=== PATIENT | female | born 1965 | race Caucasian/White ===

== ENCOUNTER 2020-06-26 11:18 | Outpatient (CLI) | payer BC, SELFPAY ==
--- NOTE | ~2020-06-26 | CT_ITS ---
EXAMINATION:CT lung screening DATE: 06/26/2020 11:47 INDICATION: Personal history of tobacco dependence. Current smoker with 30 pack year history. TECHNIQUE: Computed tomography (CT) of the chest was performed without intravenous contrast. Automate d exposure control and iterative reconstruction technique were employed. The dose-length product (DLP ) was 111.49 mGy-cm. COMPARISON: None. FINDINGS: There is mild emphysema. There is widespread peripheral intralobular and interlobular septa l thickening. No bronchiectasis or honeycombing. A calcified right lung nodule and calcified right hi lar and mediastinal lymph nodes are consistent with old granulomatous disease. No pleural effusion. T he heart size is normal. There are coronary artery calcifications. No pericardial effusion. A calcifi cation in the liver is consistent with old granulomatous disease. There is mild thoracic spondylosis. IMPRESSION: 1. Lung-RADS category 2: Benign appearance or behavior. Continue annual screening with noncontrast lo w-dose chest CT in 12 months. Reviewed, dictated and finalized at location A. IMPRESSION: 1. Lung-RADS category 2: Benign appearance or behavior. Continue annual screeni ng with noncontrast low-dose chest CT in 12 months.
== END 2020-06-26 11:19 | disposition home or self-care (01) ==
LOC: ANHIMG 11:30
PROVIDERS: PCP Emergency Medicine; Visit Provider Emergency Medicine
DX: F17.210 Nicotine dependence, cigarettes, uncomplicated (principal)
CPT/HCPCS: G0297

== ENCOUNTER 2020-07-03 15:04 | Outpatient (CLI) | payer BC, SELFPAY ==
--- NOTE | 2020-07-03 16:12 | ECG_ITS ---
Measurements Intervals [place] Rate: 48 P: 62 IN: 170 QRS: 33 QRSD: 105 T: 47 QT: 469 QTc: 421 Interpretive Statements SINUS BRADYCARDIA INCOMPLETE RIGHT BUNDLE BRANCH BLOCK ABNORMAL ECG Electronically Signed On 07-03-2020 16:51:04 CARD ASSEMBLER by Estuardo Esparza D.O.
[2020-07-03 16:26] LABS: Add Urine Microscopic? YES; Appearance Urine Clear (Clear); Bilirubin Urine Negative (Negative); Blood Urine Negative (Negative); Color Urine Yellow (Yellow); Glucose Urine UA Negative (Negative); Ketones Urine Trace mg/dL (Negative); Leukocyte Esterase Ur Negative LEU/UL (Negative); Mucus Urine Rare /lpf; Nitrate Urine Negative (Negative); Protein Urine Negative (Negative); RBC Urine 0-2 /hpf (0-2); Specific Grav Ur 1.023 (1.001-1.035); Squamous Epithelial Cell Urine Moderate /hpf (Few); Urobilinogen Urine Negative mg/dL (<2.0); WBC Urine 0-3 /hpf
[2020-07-03 16:28] LABS: Hematocrit 41.6 % (37.0-47.0); Hemoglobin 13.8 g/dL (12.0-15.0); Mean Corpuscular HGB Conc 33.2 g/dl (32-36); Mean Corpuscular Hemoglobin 31.4 pg (26-34); Mean Corpuscular Volume 94.8 fl (80-100); Mean Platelet Volume 8.1 fl (7.4-10.4); Platelet Count Result 307 k/mm3 (150-375); Red Blood Count 4.39 M/mm3 (4.2-5.4); Red Cell Distribution Width 12.6 % (11.5-14.5); White Blood Count 7.4 K/mm3 (4.5-10.0)
== END 2020-07-03 15:05 | disposition home or self-care (01) ==
LOC: ANHLAB 15:06
PROVIDERS: PCP Emergency Medicine; Visit Provider Surgery
DX: R19.03 Right lower quadrant abdominal swelling, mass and lump (principal); Z12.11 Encounter for screening for malignant neoplasm of colon; Z72.0 Tobacco use; Z01.818 Encounter for other preprocedural examination; I45.10 Unspecified right bundle-branch block
CPT/HCPCS: 36415; 81001; 85027; 93005

== ENCOUNTER 2020-07-04 01:26 | Outpatient (CLI) | payer BC, SELFPAY ==
[2020-07-04 20:51] LABS: SARS-CoV-2 RNA PCR Negative
== END 2020-07-04 01:27 | disposition home or self-care (01) ==
LOC: ANHCOVIDDT 01:26
PROVIDERS: PCP Emergency Medicine; Visit Provider Surgery
DX: Z01.812 Encounter for preprocedural laboratory examination (principal); Z20.828 Contact with and (suspected) exposure to other viral communicable diseases
CPT/HCPCS: 87635; C9803; U0003

== ENCOUNTER 2020-07-06 00:57 | Day surgery (SDC) | payer BC, SELFPAY ==
[2020-07-03 09:24] VITALS: BMI 36.6
--- NOTE | 2020-07-06 09:20 | WPDANESEPPF ---
Anes - Initial Pre Proc Eval Procedure: Operation Date: 07/06/20 11:15 Proposed Procedures p Screening Colonoscopy - Aldair Mojica MD Date/Time: 07/06/20 09:20 Surgeon: Aldair Mojica MD Pre Op Diagnosis: neoplasm screening Patient Data Age: 54 Gender: F Height: 1.6 m Weight: 93.89 kg Allergies Allergy/AdvReac Type Severity Reaction Status Date / Time No Known Allergies Allergy Mild Verified 07/06/20 09:49 Home Medications Medication Instructions Recorded Confirmed Type Valtrex 1 tablet PO TID 07/03/20 07/06/20 History calcium-vitamin D3-vitamin K 1 tablet PO DAILY 07/03/20 07/06/20 History diphenhydramine HCl [Benadryl] 25 mg PO HS 07/03/20 07/06/20 History magnesium 1 tablet PO DAILY 07/03/20 07/06/20 History multivitamin 1 tablet PO DAILY 07/03/20 07/06/20 History omega-3 fatty acids [Stuart 3] 1,000 mg PO DAILY 07/03/20 07/06/20 History valacyclovir 100 mg PO TID 07/06/20 07/06/20 History Patient hx anesthesia problems: none Family hx anesthesia problems: none PMFSH Past Medical History Medical History (Updated 07/06/20 @ 09:20 by Ge Tam MD) BMI 38.0-38.9,adult Tobacco abuse Surgical History Surgical History History of x3 History of eye surgery Family History Family History Father Liver cirrhosis Mother Renal failure Diabetes mellitus Hypertension Other Diabetes mellitus Hypertension Kidney disease Social History Social History Smoking packs per day: 1 Smoking cigarettes per day: 20.0 Years smoked: 40 Smoking pack-years: 40.00 Smoking status: Current every day smoker Tobacco type: cigarettes Alcohol intake: never Substance use: unknown Living arrangements: with family 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 Questions were solicited and answers provided to the satisfaction of the patient/family/POA.
[2020-07-06 09:51] VITALS: BP 106/64; PULSE 62; RESP 17; TEMP 36.4; O2SAT 97; BMI 36.1
[2020-07-06] MEDS: LACTATED RINGERS 1,000 ML 150 ML IV CONT ×2 (10:08→13:16)
--- NOTE | 2020-07-06 11:40 | WPDHPUPDATE1 ---
History and Physical Update Update Date/Time: 07/06/20 11:40 History and Physical has been reviewed, including an updated exam of the patient. There are NO changes in the patient's condition. Risks, benefits, and alternatives have been discussed and questions answered. Patient agrees to proceed with procedure.
[2020-07-06 13:20] VITALS: BP 103/66; PULSE 70; RESP 20; O2SAT 100
[2020-07-06 13:30] VITALS: BP 100/56; PULSE 63; RESP 15; O2SAT 100
[2020-07-06 13:40] VITALS: BP 124/72; PULSE 59; RESP 16; O2SAT 100
== END 2020-07-06 14:02 | disposition home or self-care (01) ==
PROVIDERS: PCP Emergency Medicine; Visit Provider Surgery
PROC: 0DJD8ZZ Inspection of Lower Intestinal Tract, Via Natural or Artificial Opening Endoscopic (ICD-10-PCS; CPT 45378; principal; 2020-07-06 11:15)
DX: Z12.11 Encounter for screening for malignant neoplasm of colon (principal); K63.5 Polyp of colon; K62.1 Rectal polyp; K57.30 Diverticulosis of large intestine without perforation or abscess without bleeding; F17.210 Nicotine dependence, cigarettes, uncomplicated; E66.9 Obesity, unspecified; Z68.36 Body mass index [BMI] 36.0-36.9, adult
CPT/HCPCS: 45380; 88305; J2704; J7120

== ENCOUNTER 2020-07-07 01:38 | Day surgery (SDC) | payer BC, SELFPAY ==
[2020-07-03 09:13] VITALS: BMI 36.6
[2020-07-07] VITALS (8 sets, daily range): BP systolic 89–124; BP diastolic 54–71; PULSE 48–81; RESP 10–20; TEMP 35.8–36.4; O2SAT 92–100
[2020-07-07] MEDS: LACTATED RINGERS 1,000 ML 30 ML IV CONT ×2 (12:25→15:21)
--- NOTE | 2020-07-07 13:31 | WPDHPUPDATE1 ---
History and Physical Update Update Date/Time: 07/07/20 13:31 History and Physical has been reviewed, including an updated exam of the patient. There are NO changes in the patient's condition. Risks, benefits, and alternatives have been discussed and questions answered. Patient agrees to proceed with procedure.
--- NOTE | 2020-07-07 13:41 | P.PNAN_ITS ---
Anes - Initial Pre Proc Eval Procedure: Operation Date: 07/07/20 14:00 Proposed Procedures p Excision Large Lipoma Right Lower Abdominal Wall - Aldair Mojica MD Date/Time: 07/07/20 13:41 Surgeon: Aldair Mojica MD Pre Op Diagnosis: large 10x 5 cm RLQ abd subq mass Patient Data Age: 54 Gender: F Height: 5 ft 3 in Weight: 93.45 kg Last Vital Signs Temp 35.8 C L 07/07/20 12:10 Pulse 78 07/07/20 12:10 Resp 20 07/07/20 12:10 BP 97/71 L 07/07/20 12:10 Pulse Ox 97 07/07/20 12:10 Allergies Allergy/AdvReac Type Severity Reaction Status Date / Time No Known Allergies Allergy Mild Verified 07/07/20 12:36 Home Medications Medication Instructions Recorded Confirmed Type Valtrex 1 tablet PO TID 07/03/20 07/07/20 History calcium-vitamin D3-vitamin K 1 tablet PO DAILY 07/03/20 07/07/20 History diphenhydramine HCl [Benadryl] 25 mg PO HS 07/03/20 07/07/20 History magnesium 1 tablet PO DAILY 07/03/20 07/07/20 History multivitamin 1 tablet PO DAILY 07/03/20 07/07/20 History omega-3 fatty acids [Alder 3] 1,000 mg PO DAILY 07/03/20 07/07/20 History valacyclovir 100 mg PO TID 07/06/20 07/06/20 History Patient hx anesthesia problems: none Family hx anesthesia problems: none PMFSH Past Medical History Medical History BMI 38.0-38.9,adult Tobacco abuse Surgical History Surgical History History of x3 History of eye surgery Family History Family History Father Liver cirrhosis Mother Renal failure Diabetes mellitus Hypertension Other Diabetes mellitus Hypertension Kidney disease Social History Social History Smoking packs per day: 1 Smoking cigarettes per day: 20.0 Years smoked: 40 Smoking pack-years: 40.00 Smoking status: Current every day smoker Tobacco type: cigarettes Alcohol intake: never Substance use: unknown 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, 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 Questions were solicited and answers provided to the satisfaction of the patient/family/POA.
[2020-07-07] MEDS: ceFAZolin 2 GM/D5W 50 ML 2 GM/50 ML BAG IVPB (14:03)
--- NOTE | 2020-07-07 15:19 | P.OP_ITS ---
Procedure Note - Detailed Date of procedure: 07/07/20 Pre-op diagnosis: large 10x 5 cm RLQ abd subq mass Post-op diagnosis: same Procedure performed: Excision of skin lesion Description of procedure: The patient was placed in the supineposition for induction of G IV S anesthesia. Then she was rolled slightly to the left and a Gelfoam bump placed underneath her right hip and back to rotator senior living toward the left side. This nicely exposed the palpable deep lipoma in the lower lateral right abdomen. After a surgical time out confirming patient and procedure the patient was prepped and draped in the usual sterile fashion. We draped the right lower abdomen and flank widely. A 9 cm incision was outlined across the lateral lower right abdomen directly over the palpable mass. Local anesthetic was administered just under the skin and subcutaneously. A direct incision was made over the palpable lesion. I dissected down to the deep subcutaneous tissues, and we in size but appeared to be Vijay's fascia and found more fat. Then we could feel the underlying rounded oblong mass. Following this with palpation it appeared that the mass was underneath the external oblique aponeurosis and muscle in this area. Using a transverse i ncision that was muscle-splitting along the lines of the fibers of the external oblique we split the external oblique and then some yellowish fat seen a bubble up which was consistent with a submuscular lipoma sitting between the external oblique and the underlying internal oblique and transversalis fascia. This was drained circumferentially dissected with Bovie cautery pushing the muscle away from it there were couple sites were there appeared to be blood supply coming into them and these were hemostatic divided and tied with suture ligatures of 3 0 Vicryl. I then completely excised the mass. Bleeding was controlled with electrocautery and the suture ligation mentioned above. The wound was closed in layers. First an interrupted [id number] 0 Vicryl was used on the area of disruption of the lateral internal oblique and transversalis fascia at the depth of the mass. Following this an 0 Vicryl suture was used to run the external oblique aponeurosis and muscle closed starting medially running laterally until we came to the end of the incision into that muscular structure. I then used a 0 Vicryl to run the Vijay's fascia closed. Several un-dyed 3-0 & 0 vicryl deep dermal sutures were placed to approximate the subcutaneous tissues and then a 4-0 undyed Monocryl running subcuticular closure was completed. Surgical glue applied as dressing. Patient tolerated this well. Anesthesia: GLMA and local Surgeon: Aldair Mojica MD Strategic Partner Development Manager: SUKUMAR Velasco, OR 1st assist Estimated blood loss (mL): 10 Drains: No Packing: No Pathology: yes (A 9 x 6 x 4 cm submuscular mass consistent with possible lipoma) Complications: No immediate complications Condition: stable Findings: The palpable mass that the patient and I were feeling was actually deep to the external oblique and situated densely adhered to the underlying internal oblique and laterally little bit of the transversalis muscle. To me this felt grossly like a lipoma.
[2020-07-07] MEDS: fentaNYL CITRATE INJ (*CRX) 100 MCG/2 ML VIAL 25 MCG IV PUSH (15:48)
[2020-07-07] MEDS: oxyCODONE HCL (*CRX) 5 MG TAB IR PO (16:36)
--- NOTE | 2020-07-07 16:53 | SUR.PHASEII ---
1640- pt with c/o pain. medicated for pain. tolerating po fluids well.
== END 2020-07-07 17:30 | disposition home or self-care (01) ==
PROVIDERS: PCP Emergency Medicine; Visit Provider Surgery
PROC: (CPT 22901; principal; 2020-07-07 14:00)
DX: D17.1 Benign lipomatous neoplasm of skin and subcutaneous tissue of trunk (principal); F17.210 Nicotine dependence, cigarettes, uncomplicated; E66.9 Obesity, unspecified; Z68.36 Body mass index [BMI] 36.0-36.9, adult
CPT/HCPCS: 22901; 88304; A9270; J0690; J1100; J2250; J2405; J2704; J3010; J7120

== ENCOUNTER 2020-10-11 10:54 | Outpatient (CLI) | payer BC, SELFPAY ==
--- NOTE | ~2020-10-11 | US_ITS ---
EXAMINATION: US soft tissue abdomen DATE: 10/11/2020 11:52 INDICATION: Right lower quadrant mass. TECHNIQUE: Multiple grayscale and Doppler ultrasound images of the abdomen were obtained. COMPARISON: None FINDINGS: There is a 5.1 x 5.1 x 5.1 cm mixed cystic and solid, hypoechoic, subcutaneous mass deep to the right lower quadrant incision. No erythema on physical exam. IMPRESSION: 1. 5.1 cm subcutaneous mass deep to the right lower quadrant incision. The patient reports a lipoma r esection in July. This finding is consistent with a hematoma. Reviewed, dictated and finalized at location A. ANT PUFF MAKER IMPRESSION: 1. 5.1 cm subcutaneous mass deep to the right lower quadrant incision. The umang ent reports a lipoma resection in July. This finding is consistent with a h ematoma.
--- NOTE | ~2020-10-11 | US_ITS ---
US renal BI 10/11/2020 11:52 Procedure: Realtime transabdominal ultrasound of the kidneys and bladder. Indication: Right lower quadrant pain Comparison: 10/11/2020 Findings: Renal echotexture is normal bilaterally without hydronephrosis, contour deforming mass or r enal calculus. The right kidney measures 10.7 cm and left kidney measures 12.1 cm. Bladder within no rmal limits. Impression: 1: Unremarkable renal ultrasound. No stones, masses or hydronephrosis. Reviewed, dictated and finalized at location B. EU THERAPIST Impression: 1: Unremarkable renal ultrasound. No stones, masses or hydronephrosis.
== END 2020-10-11 10:55 | disposition home or self-care (01) ==
PROVIDERS: PCP Emergency Medicine; Referring Provider Surgery; Visit Provider Emergency Medicine
DX: R10.31 Right lower quadrant pain (principal)
CPT/HCPCS: 76705; 76775

== ENCOUNTER 2020-12-25 14:58 | Outpatient (CLI) | payer BC, SELFPAY ==
--- NOTE | ~2020-12-25 | MM_ITS ---
EXAMINATION: MM screening tato BI w carlos HISTORY: Screening mammogram TECHNIQUE: Craniocaudal and mediolateral oblique 3-D tomosynthesis images were obtained and synthetic 2-D images were generated. CAD analysis was submitted and interpreted. COMPARISON: 06/25/2018 bilateral digital screening mammogram examinations BREAST PARENCHYMAL COMPOSITION: There are scattered areas of fibroglandular density. FINDINGS: There is no evidence of suspicious mass, calcification, or architectural distortion to sugg est malignancy in either breast. There has been no suspicious interval change. IMPRESSION: 1. No mammographic evidence of malignancy. 2. Recommend routine screening mammography in one year. BI-RADS Category 1: Negative Reviewed, dictated and finalized at location A.
== END 2020-12-25 14:59 | disposition home or self-care (01) ==
LOC: ANHIMG 15:01
PROVIDERS: PCP Emergency Medicine; Visit Provider Emergency Medicine
DX: Z12.31 Encounter for screening mammogram for malignant neoplasm of breast (principal)
CPT/HCPCS: 77063; 77067

== ENCOUNTER 2021-11-15 15:43 | Emergency (ER) | payer SELFPAY ==
--- NOTE | ~2021-11-15 | XR_ITS ---
EXAMINATION: XR hand RT min 3V DATE: 11/15/2021 16:15 INDICATION: Right hand injury. TECHNIQUE: 3 views of right hand were obtained. COMPARISON: Right hand radiographs 02/10/2009 FINDINGS: There is an old healed fracture of head and neck of fifth middle phalanx with malunion resu lting in clinodactyly. There is mild posttraumatic osteoarthritis of fifth distal interphalangeal taylor nt. There is mild osteoarthritis of first carpometacarpal joint, first and second metacarpophalangeal joints, and second and third distal interphalangeal joints. IMPRESSION: 1. Mild polyarticular osteoarthritis. Reviewed, dictated and finalized at location A.
[2021-11-15 15:50] VITALS: BP 120/70; PULSE 62; RESP 16; TEMP 36.3; O2SAT 97
--- NOTE | 2021-11-15 16:23 | ED.GENADULT ---
HPI - General Adult General Chief complaint: Extremity Injury, Upper Stated complaint: Fall, R hand pain Time Seen by Provider: 11/15/21 15:56 Source: RN notes reviewed History of Present Illness HPI narrative: Patient presents emergency room from home for right hand pain. Patient states she was walking yesterday when she tripped over a down to sign. States she fell catching her self with a right outstretched hand states that she noted pain and bruising of her right palmar hand that did not extend to her dorsal hand she denies any wrist or elbow pain she states she did bump her left chin but denies any swelling or pain in her face she denies any other injuries from the fall states she has not taken any medications today Related Data Home Medications Medication Instructions Recorded Confirmed Valtrex 1 tablet PO TID 07/03/20 10/11/20 calcium-vitamin D3-vitamin K 1 tablet PO DAILY 07/03/20 10/11/20 diphenhydramine HCl [Benadryl] 25 mg PO HS 07/03/20 08/22/20 magnesium 1 tablet PO DAILY 07/03/20 10/11/20 multivitamin 1 tablet PO DAILY 07/03/20 10/11/20 omega-3 fatty acids 1,000 mg PO DAILY 07/03/20 10/11/20 valacyclovir 100 mg PO TID 07/06/20 10/11/20 Allergies Allergy/AdvReac Type Severity Reaction Status Date / Time No Known Allergies Allergy Mild Verified 10/11/20 09:18 Review of Systems Review of Systems: Gen.: Denies fevers or chills HEENT: Reports bumping chin denies pain Musculoskeletal: See HPI Neuro: Denies numbness, tingling, weakness Skin: Denies rash Endo: Denies DM [facility] Past Medical History Medical History BMI 38.0-38.9,adult Tobacco abuse Surgical History Surgical History History of x3 History of colonoscopy History of eye surgery S/P excision of lipoma Family History Family History Father Liver cirrhosis Mother Renal failure Diabetes mellitus Hypertension Other Diabetes mellitus Hypertension Kidney disease Social History Social History Smoking packs per day: 1 Smoking cigarettes per day: 20.0 Years smoked: 40 Smoking pack-years: 40.00 Smoking status: Current every day smoker Tobacco type: cigarettes Alcohol intake: never Substance use: unknown 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, 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 Gender identity (if verbalized by the patient): Female Spiritual care concerns: No Exam Narrative: APPEARANCE: No acute distress, nontoxic, resting in bed Eyes: EOMI HEENT: Normocephalic, atraumatic, no tenderness over the chin no swelling or ecchymosis full range of motion of the jaw without pain no chipped teeth RESPIRATORY: No respiratory distress MUSCULOSKELETAl: Tender palpation over the right palmar hand over with mild swelling ecchymosis as well as some ecchymosis over the dorsal hand over the second metatarsal no tenderness of the wrist or elbow radial pulse 2+ right upper extremity neurovascular intact, full flexion-extension of all 5 MCP and IP joint NEURO: Awake and alert. Following commands, speech normal, no focal deficits SKIN:: Warm, dry. Normal Color no rash or lesions Course Course Emergency Course: Discussed with patient results of workup and diagnosis. Discussed need for follow-up with primary care, proper use of medication, and reasons to return to the emergency department. Patient understands and agrees to current treatment plan Vital Signs Vital signs: Vital Signs Temperature 97.3 F L 11/15/21 15:50 Pulse Rate 62 11/15/21 15:50 Respiratory Rate 16 11/15/21 15:50 Blood Pressure 120/70 11/15/21 15:50 Pulse Oximetry 97 11/15/21 15:50 Temperature 97.3 F L 11/15/21 15:50 Pulse Rate 62 11/15/21 15:50 Respiratory Rate 16 11/15/21 15:50 Blood Pre
[2021-11-15] MEDS: IBUPROFEN 600 MG TABLET PO (16:27)
== END 2021-11-15 16:40 | disposition home or self-care (01) ==
LOC: ANHED 16:40
PROVIDERS: Emergency Provider Emergency Medicine; PCP Emergency Medicine
DX: S60.221A Contusion of right hand, initial encounter (principal); F17.210 Nicotine dependence, cigarettes, uncomplicated; M19.041 Primary osteoarthritis, right hand; W18.09XA Striking against other object with subsequent fall, initial encounter
CPT/HCPCS: 73130; 99283; A9270